=== PATIENT | female | born 2000 ===

== ENCOUNTER 2018-08-15 12:43 | Emergency (ER) | payer MEDICAID, OTHER ==
[2018-08-15] MEDS ORDERED: Sodium Chloride 0.9% 1,000 ML IV STA ×2 (13:23→14:45)
--- NOTE | 2018-08-15 13:29 | ED PDOC ---
HPI: Abdomen Time Seen by Provider: 08/15/18 13:09 Chief Complaint (Nursing): Abdominal Pain Chief Complaint (Provider): Pelvic Pain History Per: Patient History/Exam Limitations: no limitations Onset/Duration Of Symptoms: Days (2) Additional Complaint(s): 18 y/o female presents to the ED complaining of lower pelvic pain that started 2 days ago. Patient states she was at work when the pain started which she took Advil with no relief. She reports she had this pain before but it comes and goes and now the pain is constant. Patient admits the pain came back when she got her menstrual cycle which she is on. Patient denies nausea, vomiting, diarrhea, chest pain, shortness of breath, cough, dizziness, dysuria, or any headache. PMD: none provided Past Medical History Reviewed: Historical Data, Nursing Documentation, Vital Signs Vital Signs: Last Vital Signs Temp 99.3 F 08/15/18 12:53 Pulse 118 H 08/15/18 12:53 Resp 20 08/15/18 12:53 BP 114/78 08/15/18 12:53 Pulse Ox 97 08/15/18 12:53 Primary Care Provider: Lupis Mo - Medical History PMH: Bipolar Disorder, Depression, HIV (2013) - Surgical History Surgical History: No Surg Hx - Family History Family History: States: Unknown Family Hx - Immunization History Hx Tetanus Toxoid Vaccination: No Hx Influenza Vaccination: Yes Hx Pneumococcal Vaccination: No - Home Medications Home Medications: Ambulatory Orders Medication Instructions Recorded Bictegrav/Emtricit/Tenofov Ala 1 each PO DAILY 05/09/18 [Biktarvy 50-200-25 mg Tablet] Ibuprofen [Motrin] 600 mg PO Q6 #30 tab 05/09/18 Nitrofurantoin Macrocrystals 1 cap PO BID #14 cap 05/09/18 [Macrobid] Phenazopyridine HCl [Pyridium] 200 mg PO BID #6 tablet 05/09/18 - Allergies Allergies/Adverse Reactions: Allergies Allergy/AdvReac Type Severity Reaction Status Date / Time No Known Allergies Allergy Verified 08/15/18 12:53 Review of Systems ROS Statement: Except As Marked, All Systems Reviewed And Found Negative Cardiovascular: Negative for: Chest Pain Respiratory: Negative for: Cough, Shortness of Breath Gastrointestinal: Negative for: Nausea, Vomiting, Diarrhea Genitourinary Female: Positive for: Pelvic Pain. Negative for: Dysuria Neurological: Negative for: Headache, Dizziness Physical Exam - Reviewed Nursing Documentation Reviewed: Yes Vital Signs Reviewed: Yes - Physical Exam Appears: Positive for: Non-toxic, No Acute Distress Head Exam: Positive for: ATRAUMATIC, NORMAL INSPECTION, NORMOCEPHALIC Skin: Positive for: Normal Color, Warm, Dry Eye Exam: Positive for: EOMI, Normal appearance, PERRL ENT: Positive for: Normal ENT Inspection Neck: Positive for: Normal, Painless ROM, Supple Cardiovascular/Chest: Positive for: Regular Rate, Rhythm. Negative for: Murmur Respiratory: Positive for: Normal Breath Sounds. Negative for: Wheezing Gastrointestinal/Abdominal: Positive for: Soft, Tenderness (mild lower pelvic across; no periumbilical, leftm or right lower abd tenderness). Negative for: Distended, Guarding, Rebound Back: Positive for: Normal Inspection. Negative for: L CVA Tenderness, R CVA Tenderness Extremity: Positive for: Normal ROM Neurological/Psych: Positive for: Awake, Alert, Normal Tone, Oriented (x3). Negative for: Motor/Sensory Deficits - Laboratory Results Result Diagrams: 08/15/18 13:47 08/15/18 13:47 Lab Results: 18 bands - ECG O2 Sat by Pulse Oximetry: 97 Pulse Ox Interpretation: Normal - Progress ED Course And Treament: 1340: Stable. AAOx3. Pain free. 1440: Bands elevated significantly. Will do septic workup. Will give for presumed abd/pelvic pain infectious etiology. Pending US and ct. 1450: Dr. Altman to take over care. Fu on labs and imaging. Medical Decision Making Medical Decision Making: Time: 1323 Initial Impression: Pelvic pain Initial Plan: -BMP -ED urine -Urine dipstick -CBC -Sodium chloride -Toradol 15mg -US Scribe Attestation: Documented by Asha Govea, acting as a scribe for Neeraj Corral Provider Scribe Attestation: All medical record entries made by the Scribe were at my direction and personally dictated by me. I have reviewed the chart and agree that the record accurately reflects my personal performance of the history, physical exam, medical decision making, and the department course for this patient. I have also personally directed, reviewed, and agree with the discharge instructions and disposition. Disposition - Clinical Impression Clinical Impression: Pelvic pain, Bandemia - Patient ED Disposition Is Patient to be Admitted: Transfer of Care Counseled Patient/Family Regarding: Studies Performed, Diagnosis - Disposition Disposition: Transfer of Care Disposition Time: 14:46 Condition: FAIR Patient Signed Over To: Aubrie Altman
[2018-08-15 13:51] LABS: BASO % 0.2 % (0.0-2.0); EOS % 0.4 % (0.0-4.0); HEMOGLOBIN 13.5 g/dL (12.0-16.0); LYMPH # 0.6 K/uL (1.0-4.3); MEAN CELL VOLUME 85.8 fl (81.0-99.0); MEAN CORPUSCULAR HEMOGLOBIN 28.8 pg (27.0-31.0); MEAN CORPUSCULAR HGB CONC 33.5 g/dL (33.0-37.0); MEAN PLATELET VOLUME 10.1 fl (7.2-11.7); MONO % 0.4 % (0.0-10.0); NEUT # 6.6 K/uL (1.8-7.0); PLATELET COUNT 171 K/uL (130-400); RBC 4.68 Mil/uL (3.80-5.20); WHITE BLOOD COUNT 7.2 K/uL (4.8-10.8)
[2018-08-15 14:07] LABS: BLOOD UREA NITROGEN 10 mg/dl (7-17); CALCIUM 9.2 mg/dL (8.4-10.2); GFR NON-AFRICAN AMERICAN > 60
[2018-08-15 14:33] LABS: LYMPHOCYTE 6 % (20-50); MONOCYTE 4 % (0-10); TOTAL CELLS COUNTED 100
[2018-08-15 14:36] LABS: BANDS 18 % (0-2); EOSINOPHIL 1 % (0-7); LARGE PLATELETS PRESENT; MICROCYTOSIS SLIGHT; NEUTROPHIL 71 % (42-75); PLATELET ESTIMATE NORMAL (NORMAL)
[2018-08-15] MEDS ORDERED: cefTRIAXone (Rocephin) 1 gm Inj IV ONE (14:39)
[2018-08-15] MEDS ORDERED: metroNIDAZOLE 500mg/100ml NS 100 ML IV STA (14:39)
[2018-08-15] MEDS ORDERED: metroNIDAZOLE 500mg/100ml NS 100 ML IVPB ONE (14:46)
[2018-08-15] MEDS ORDERED: cefTRIAXone (Rocephin) 1 gm Inj ONE (14:47)
--- NOTE | 2018-08-15 15:19 | US ---
Date of service: 08/15/2018 HISTORY: vaginal bleeding COMPARISON: None available. TECHNIQUE: Transvaginal and transabdominal pelvic ultrasound was performed with longitudinal and transverse images submitted for interpretation. FINDINGS: UTERUS: Measures 9.1 x 6.0 x 4.2 cm. Normal in size and appearance. No fibroid or other mass lesion seen. ENDOMETRIUM: Measures 5.0 mm in diameter. Unremarkable. CERVIX: No cervical abnormality identified. RIGHT OVARY: Measures 4.8 x 3.2 x 4.9 cm. No solid mass. Normal flow. Right ovary is enlarged by a cyst measuring 4.6 x 2.7 x 4.1 cm without septation or nodule related. LEFT OVARY: Measures 2.8 x 1.9 x 1.7 cm. No solid mass. Normal flow. FREE FLUID: No significant free fluid noted. OTHER FINDINGS: None. IMPRESSION: Mildly larger in the right ovary due to a 4.6 cm simple cyst. Clinical correlation and consideration of 6-12 week sonographic follow-up advised. Unremarkable uterus, endometrium and cervix as well as left ovary.
[2018-08-15 15:41] LABS: VENOUS BLOOD GAS BASE EXCESS -2.8 mmol/L (0.0-2.0); VENOUS BLOOD GAS PCO2 32 mmHg (40-60); VENOUS BLOOD GAS PO2 70 mm/Hg (30-55); VENOUS BLOOD PH 7.42 (7.32-7.43)
[2018-08-15 15:59] LABS: SQUAMOUS EPITHIAL 40 /hpf (0-5); URINE BACTERIA RARE (<OCC); URINE BILIRUBIN NEGATIVE (NEGATIVE); URINE BLOOD LARGE (NEGATIVE); URINE CLARITY CLOUDY (Clear); URINE COLOR YELLOW (YELLOW); URINE GLUCOSE (UA) NEG (NEGATIVE); URINE LEUKOCYTE ESTERASE SMALL Leu/uL (Negative); URINE PROTEIN 30 mg/dL (NEGATIVE); URINE UROBILINOGEN 0.2-1.0 mg/dL (0.2-1.0)
--- NOTE | 2018-08-15 16:05 | ED PDOC ---
- Laboratory Results Result Diagrams: 08/15/18 13:47 08/15/18 13:47 Lab Results: pO2 70 mm/Hg (30-55) H 08/15/18 15:35 VBG pH 7.42 (7.32-7.43) 08/15/18 15:35 VBG pCO2 32 mmHg (40-60) L 08/15/18 15:35 VBG HCO3 22.7 mmol/L 08/15/18 15:35 VBG Total CO2 21.8 mmol/L (22-28) L 08/15/18 15:35 VBG O2 Sat (Calc) 98.3 % (40-65) H 08/15/18 15:35 VBG Base Excess -2.8 mmol/L (0.0-2.0) L 08/15/18 15:35 VBG Potassium 3.5 mmol/L (3.6-5.2) L 08/15/18 15:35 Sodium 137.0 mmol/L (132-148) 08/15/18 15:35 Chloride 109.0 mmol/L (98-107) H 08/15/18 15:35 Glucose 112 mg/dL (65-105) H 08/15/18 15:35 Lactate 1.8 mmol/L (0.7-2.1) 08/15/18 15:35 FiO2 21.0 % 08/15/18 15:35 - ECG O2 Sat by Pulse Oximetry: 97 Medical Decision Making Medical Decision Making: Accession No. 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 TECHNIQUE: Transvaginal and transabdominal pelvic ultrasound was performed with longitudinal and transverse images submitted for interpretation. FINDINGS: UTERUS: Measures 9.1 x 6.0 x 4.2 cm. Normal in size and appearance. No fibroid or other mass lesion seen. ENDOMETRIUM: Measures 5.0 mm in diameter. Unremarkable. CERVIX: No cervical abnormality identified. RIGHT OVARY: Measures 4.8 x 3.2 x 4.9 cm. No solid mass. Normal flow. Right ovary is enlarged by a cyst measuring 4.6 x 2.7 x 4.1 cm without septation or nodule related. LEFT OVARY: Measures 2.8 x 1.9 x 1.7 cm. No solid mass. Normal flow. FREE FLUID: No significant free fluid noted. OTHER FINDINGS: None. IMPRESSION: Mildly larger in the right ovary due to a 4.6 cm simple cyst. Clinical correlation and consideration of 6-12 week sonographic follow-up advised. Unremarkable uterus, endometrium and cervix as well as left ovary. EXAM: CT Abdomen and Pelvis with IV contrast CLINICAL HISTORY: BLQ PAIN,FEVER TECHNIQUE: Axial computed tomography images of the abdomen and pelvis with intravenous contrast. 595.42 mGy-cm CONTRAST: With; [id number] 95ML COMPARISON: None provided. FINDINGS: LUNG BASES: The lung bases appear clear. No pleural effusions are seen. LIVER: Unremarkable. GALLBLADDER AND BILE DUCTS: The gallbladder appears within normal limits. No radioopaque gallstones are seen. No biliary ductal dilatation is evident. PANCREAS: Unremarkable. SPLEEN: Unremarkable. ADRENAL GLANDS: Unremarkable. KIDNEYS, URETERS, AND BLADDER: The kidneys appear within normal limits. There is no hydronephrosis or hydroureter. No urinary calculi are seen. STOMACH AND BOWEL: Unremarkable appearance of the stomach and bowel. No evidence of bowel obstruction. No evidence suggesting enteritis or colitis. APPENDIX: No evidence of acute appendicitis on CT examination. PERITONEUM: No free fluid. No free air. LYMPH NODES: No lymphadenopathy is evident. REPRODUCTIVE: Simple 3.7 cm right ovarian cyst is seen. The uterus and ovaries are otherwise unremarkable. VASCULATURE: No evidence of abdominal aortic aneurysm. BONES: No aggressive appearing osseous lesion. No acute osseous pathology evident. IMPRESSION: Simple 3.7 cm right ovarian cyst Otherwise unremarkable study. Electronically signed on August 15, 2018 7:46:56 PM EDT by: Mikey Moore M.D., M.B.A., Certified By [employer] Trained MRI and CT Specialist 19:50 Pt feels better. 20:[address] Forrest for admission for UTI and sepsis. 20:34 Patient is unable to find anyone to watch her children and is requesting to leave against medial advice. Disposition - Clinical Impression Clinical Impression: Ovarian cyst, Sepsis, UTI (urinary tract infection) - POA Present On Arrival: None - Disposition Disposition: AGAINST MEDICAL ADVICE Disposition Time: 20:35 Condition: UNKNOWN Additional Instructions: FOLLOW-UP WITH PMD RODRIGUEZ FOR REEVALUATION. RETURN TO ED IF SAME OR WORSE. Prescriptions: Acetaminophen [Tylenol 325mg tab] 2 tab PO Q4H PRN #20 tab PRN Reason: Fever >100.4 F Cephalexin [cephalexin] 500 mg PO QID #28 cap Ibuprofen [Motrin] 600 mg PO Q6H PRN #20 tab PRN Reason: Pain, Moderate (4-7) Instructions: Urinary Tract Infections in Adults, Ovarian Cysts, Sepsis in Adults Forms: [employer] (Slovak) Addendum Addendum: 08/15/18 15:00 Pt signed out by Dr. Alvarado pending ultrasound and CT. Against Medical Advice - AMA Patient Left Against Medical Advice: The patient declines admission to the hospital and wishes to leave the Emergency Department. This action is against my medical advice. This decision was made with informed refusal. The patient was told that admission to the hospital is necessary. Explanation of the reasons why were discussed. The risks of leaving were explained to the patient and include, but are not limited to, worsening of known or currently unknown conditions, permanent disability and from undiagnosed or untreated conditions. The patient has the capacity to make this informed decision and understands my explanation of the current medical problem and risks of leaving. The patient voluntarily accepts these risks and signed an AMA form documenting our conversation. The patient was given the opportunity to ask questions and reconsider. The patient was encouraged to return to the Emergency Department at any time for further care.
--- NOTE | 2018-08-15 16:38 | RAD ---
Date of service: 08/15/2018 HISTORY: abd pain COMPARISON: No prior. FINDINGS: LUNGS: No active pulmonary disease. PLEURA: No significant pleural effusion identified, no pneumothorax apparent. CARDIOVASCULAR: No atherosclerotic calcification present Normal. OSSEOUS STRUCTURES: No significant abnormalities. VISUALIZED UPPER ABDOMEN: Normal. OTHER FINDINGS: None. IMPRESSION: No active disease.
[2018-08-15] MEDS ORDERED: Sodium Chloride 0.9% 50 ML IV ONE (18:44)
[2018-08-15] MEDS ORDERED: Iohexol 300 100 ML IJ ONE (18:44)
[2018-08-15 20:26] VITALS: BP 85/45; PULSE 113; RESP 16; TEMP 100.6
[2018-08-16 00:11] VITALS: O2SAT 97
--- NOTE | 2018-08-16 17:00 | CT ---
Date of service: 08/15/2018 PROCEDURE: CT Abdomen and Pelvis with contrast HISTORY: BLQ pain, fever COMPARISON: None. TECHNIQUE: Following the intravenous administration of iodinated contrast material, a CT examination of the abdomen and pelvis was performed from the domes of the diaphragms to the symphysis pubis with reformatted datasets provided in axial, sagittal and coronal planes. Oral contrast was not administered as per referring physician request. Contrast dose: Omnipaque 320, 95 cc Radiation dose: Total exam DLP = 595.42 mGy-cm. This CT exam was performed using one or more of the following dose reduction techniques: Automated exposure control, adjustment of the mA and/or kV according to patient size, and/or use of iterative reconstruction technique. FINDINGS: LOWER THORAX: Unremarkable. LIVER: Unremarkable. No gross lesion or ductal dilatation. GALLBLADDER AND BILE DUCTS: The gallbladder is mildly distended and otherwise unremarkable appearing. PANCREAS: Unremarkable. No gross lesion or ductal dilatation. SPLEEN: Unremarkable. ADRENALS: Unremarkable. No mass. KIDNEYS AND URETERS: Unremarkable. No hydronephrosis. No solid mass. VASCULATURE: Unremarkable. No aortic aneurysm. No aortic atherosclerotic calcification or mural plaque present. BOWEL: Unremarkable. No obstruction. No gross mural thickening. APPENDIX: Not identified. No CT evidence to suggest appendicitis at this time. PERITONEUM: Unremarkable. No free fluid. No free air. LYMPH NODES: Unremarkable. No enlarged lymph nodes. BLADDER: Unremarkable. REPRODUCTIVE: There is a 3.4 x 3.8 x 4.9 cm (transverse by anteroposterior by superoinferior dimensions) cystic lesion at the right adnexal compartment likely representing a right ovarian cyst with remainder of the reproductive organs unremarkable appearing. BONES: No acute fracture. OTHER FINDINGS: None. IMPRESSION: 3.4 x 3.8 x 4.9 cm right adnexal cyst for which trans abdominal and transvaginal ultrasonography are advised for further characterization. The remainder the examination appears unremarkable grossly. Concordant preliminary report from [facility], 08/15/2018, 7:46 p.m..
== END 2018-08-15 20:59 | disposition left against medical advice (07) ==
LOC: H.ER 12:43
DX: R10.2 Pelvic and perineal pain (principal); D72.825 Bandemia; Z86.59 Personal history of other mental and behavioral disorders; N39.0 Urinary tract infection, site not specified; N93.9 Abnormal uterine and vaginal bleeding, unspecified
CPT/HCPCS: 71045; 74177; 76830; 80048; 81003; 81025; 82803; 85025; 87040; 87086; 96361; 96365; 96375; 99285; J0696; J1885; J7030; Q9967

== ENCOUNTER 2018-08-19 16:02 | Emergency (ER) | payer MEDICAID ==
[2018-08-19 16:30] VITALS: RESP 16; TEMP 98.6; O2SAT 97
--- NOTE | 2018-08-19 17:02 | ED PDOC ---
HPI: General Adult Time Seen by Provider: 08/19/18 16:47 Chief Complaint (Nursing): Abnormal Labs Chief Complaint (Provider): positive blood cultures History Per: Patient (18 y/o female h/o HIV recently seen in ED for lower abdominal pain and was diagnosed with UTI/ovarian cyst. Patient was noted to have positive blood cultures and called back to ED. notes additional left sided jaw pain and inability to open jaw.) Past Medical History Reviewed: Historical Data, Nursing Documentation, Vital Signs Vital Signs: Last Vital Signs Temp 98.6 F 08/19/18 16:29 Pulse 72 08/19/18 16:29 Resp 16 08/19/18 16:29 BP 111/62 08/19/18 16:29 Pulse Ox 97 08/19/18 16:29 Primary Care Provider: Procedure,Nonphys - Medical History PMH: Bipolar Disorder, Depression, HIV (2013) Denies: Chronic Kidney Disease - Family History Family History: States: Unknown Family Hx - Immunization History Hx Tetanus Toxoid Vaccination: No Hx Influenza Vaccination: Yes Hx Pneumococcal Vaccination: No - Home Medications Home Medications: Ambulatory Orders Medication Instructions Recorded Bictegrav/Emtricit/Tenofov Ala 1 each PO DAILY 05/09/18 [Biktarvy 50-200-25 mg Tablet] Ibuprofen [Motrin] 600 mg PO Q6 #30 tab 05/09/18 Nitrofurantoin Macrocrystals 1 cap PO BID #14 cap 05/09/18 [Macrobid] Phenazopyridine HCl [Pyridium] 200 mg PO BID #6 tablet 05/09/18 Acetaminophen [Tylenol 325mg tab] 2 tab PO Q4H PRN #20 tab 08/15/18 Cephalexin [cephalexin] 500 mg PO QID #28 cap 08/15/18 Ibuprofen [Motrin] 600 mg PO Q6H PRN #20 tab 08/15/18 Amoxicillin/Clavulanate [Augmentin 1 tab PO BID #20 tab 08/19/18 875 MG-125 MG] Naproxen 375 mg PO Q8 PRN #21 tablet 08/19/18 - Allergies Allergies/Adverse Reactions: Allergies Allergy/AdvReac Type Severity Reaction Status Date / Time No Known Allergies Allergy Verified 08/19/18 16:26 Review of Systems ROS Statement: Except As Marked, All Systems Reviewed And Found Negative Physical Exam - Reviewed Nursing Documentation Reviewed: Yes Vital Signs Reviewed: Yes - Physical Exam Appears: Positive for: Well, Non-toxic, No Acute Distress Head Exam: Positive for: ATRAUMATIC, NORMAL INSPECTION, NORMOCEPHALIC Skin: Positive for: Normal Color, Warm, DRY Eye Exam: Positive for: EOMI, Normal appearance, PERRL ENT: Positive for: Normal ENT Inspection, Other (left posterior molar tender by mandible.) Neck: Positive for: Painless ROM. Negative for: Normal (left submandibular lymph node noted enlarged.) Cardiovascular/Chest: Positive for: Regular Rate, Rhythm Respiratory: Positive for: CNT, Normal Breath Sounds Gastrointestinal/Abdominal: Positive for: Normal Exam, Soft Back: Positive for: Normal Inspection Extremity: Positive for: Normal ROM Neurological/Psych: Positive for: Awake, Alert, Normal Tone - Laboratory Results Result Diagrams: 08/19/18 16:55 08/19/18 16:55 - ECG O2 Sat by Pulse Oximetry: 97 - Progress ED Course And Treament: TORADOL [address]: NUMEROUS SUBMENTAL,SUBMANDIULAR AND JUGULAR AND POSTERIOR TRIAGLE BORDERLINE ENLARGED LYMPH NODES ARE PRESEENT, NONSPECIFIC LIKELY REACTIVE PROBABLY DUE TO INFECTION DIFFUSE MUCOSAL THICKENING INVOLVING BILATERAL ETHMOID AND MAXILLARY SINUSES BOTH TEMPOROMANDIBULAR JOINTS ARE GROSSLY NORMAL Disposition - Clinical Impression Clinical Impression: Sinusitis, Lymphadenopathy - Patient ED Disposition Is Patient to be Admitted: No - Disposition Disposition: Routine/Home Disposition Time: 20:06 Condition: FAIR Prescriptions: Amoxicillin/Clavulanate [Augmentin 875 MG-125 MG] 1 tab PO BID #20 tab Naproxen 375 mg PO Q8 PRN #21 tablet PRN Reason: Pain, Moderate (4-7) Instructions: Sinusitis, Adult (DC) Forms: [facility] ED School/Work Excuse
[2018-08-19] MEDS ORDERED: Sodium Chloride 0.9% 50 ML IV ONE (17:09)
[2018-08-19] MEDS ORDERED: Iohexol 300 100 ML IJ ONE (17:09)
[2018-08-19 17:35] LABS: VENOUS BLOOD GAS BASE EXCESS 2.4 mmol/L (0.0-2.0); VENOUS BLOOD GAS PCO2 51 mmHg (40-60); VENOUS BLOOD GAS PO2 22 mm/Hg (30-55); VENOUS BLOOD PH 7.36 (7.32-7.43)
[2018-08-19 17:35] LABS: BASO % 0.5 % (0.0-2.0); EOS # 0.1 K/uL (0.0-0.7); EOS % 1.9 % (0.0-4.0); HEMOGLOBIN 12.4 g/dL (12.0-16.0); LYMPH # 1.8 K/uL (1.0-4.3); LYMPH % 36.1 % (20.0-40.0); MEAN CORPUSCULAR HEMOGLOBIN 28.6 pg (27.0-31.0); MEAN CORPUSCULAR HGB CONC 33.6 g/dL (33.0-37.0); MEAN PLATELET VOLUME 9.9 fl (7.2-11.7); MONO # 0.3 K/uL (0.0-0.8); MONO % 6.3 % (0.0-10.0); NEUT # 2.7 K/uL (1.8-7.0); NEUT % 55.2 % (50.0-75.0); NRBC % 0.1 % (0.0-0.0); RBC 4.33 Mil/uL (3.80-5.20); RED CELL DISTRIBUTION WIDTH 12.7 % (11.5-14.5)
[2018-08-19 17:44] LABS: ALBUMIN 4.3 g/dL (3.5-5.0); ALT/SGPT 18 U/L (9-52); AST/SGOT 17 U/L (14-36); BLOOD UREA NITROGEN 10 mg/dl (7-17); CALCIUM 9.2 mg/dL (8.4-10.2); GFR NON-AFRICAN AMERICAN > 60
[2018-08-19 20:24] VITALS: BP 112/78; PULSE 78
--- NOTE | 2018-08-20 12:36 | CT ---
Date of service: 08/19/2018 PROCEDURE: CT NECK WITH CONTRAST HISTORY: unable to open jaw/ neck pain COMPARISON: Normal TECHNIQUE: CT of the neck with intravenous contrast. Coronal and sagittal reformats generated. Intravenous contrast dose: 90 mL Omnipaque 300 Radiation dose: Total exam DLP = 280.85 mGy-cm. This CT exam was performed using one or more of the following dose reduction techniques: Automated exposure control, adjustment of the mA and/or kV according to patient size, and/or use of iterative reconstruction technique. FINDINGS: NASOPHARYNX: Within normal limits. SUPRAHYOID NECK: There is a 1.2 x 0.9 cm well-circumscribed round low-attenuation lesion with mild peripheral enhancement in the left medial pterygoid muscle which is enlarged at its attachment to the mandibular ramus. There is also mild asymmetric enlargement of the left sublingual gland. The left masseter parotid and submandibular glands are also enlarged. There is effacement of fat plane in the left superior parapharyngeal space. No gross abnormality in the oropharynx, right parapharyngeal space and retropharyngeal space. INFRAHYOID NECK: No gross abnormality in the larynx, hypopharynx, and supraglottic space. Vocal cords intact. MASS: None. GLANDS: Parotid and submandibular glands unremarkable. Normal size thyroid gland, without nodule. LYMPH NODES: There are enlarged left submandibular and upper anterior and posterior cervical chain lymph nodes. The largest upper anterior cervical chain lymph node measures 1.5 x 1.5 cm and demonstrates central low attenuation likely related to necrosis. CERVICAL SPINE: No fracture or focal lesion. Within normal limits for the patient's age. VASCULAR STRUCTURES: There is normal intravascular enhancement. OTHER FINDINGS: There is moderate polypoid mucosal thickening in the maxillary sinuses and left ethmoid air cells. IMPRESSION: Findings are most compatible with a 1.2 x 0.9 cm fluid collections/developing abscess in the left medial pterygoid muscle at its attachment to the mandibular ramus. Reactive enlargement of the left masseter, sublingual, submandibular and parotid glands and reactive submandibular and upper cervical chain lymphadenopathy. Important findings were discussed with Dr. Pierce in the ER on 08/20/2018 at 11:30 p.m. A preliminary report was provided by [facility]. There is a discrepancy with the preliminary read. Findings of fluid collection/abscess in the left pterygoid muscle were not described on the preliminary read.
== END 2018-08-19 20:07 | disposition home or self-care (01) ==
LOC: H.ER 16:02
DX: J32.9 Chronic sinusitis, unspecified (principal); L02.11 Cutaneous abscess of neck; N83.209 Unspecified ovarian cyst, unspecified side; Z86.59 Personal history of other mental and behavioral disorders; M27.2 Inflammatory conditions of jaws; B20 Human immunodeficiency virus [HIV] disease
CPT/HCPCS: 70491; 80053; 81025; 82803; 85025; 87040; 99282; Q9967

== ENCOUNTER 2018-08-20 15:13 | Emergency (ER) | payer MEDICAID ==
--- NOTE | 2018-08-20 16:39 | ED PDOC ---
HPI: Dental Pain/Injury Time Seen by Provider: 08/20/18 15:47 Chief Complaint (Nursing): Dental Pain Chief Complaint (Provider): dental/facial pain History Per: Patient History/Exam Limitations: no limitations Onset/Duration Of Symptoms: Days Current Symptoms Are (Timing): Still Present Severity: Moderate Pain Scale Rating Of: 6 Quality: Aching Additional History Per: Patient Additional Complaint(s): 18 year female with history of HIV presents to the ED being called back to ED due to discrepancy on CT read of maxillofacial scan done on 08/19/2018 which demonstrated a left medial pterygoid muscle abscess. Patient states she saw her dentist on July 21 for left lower wisdom tooth pain and jaw pain and routine check up. Patient states dentist did not think the pain was coming from the tooth. Patient then was seen in ED on SaturdayAugust 15 with c/o dental pain and abdominal pain for which the abdominal pain was addressed, at this time patient has blood cultures done do to bandemia and was called back yesterday to return due to positive blood cultures. As per records patient refused admission yesterday and diagnosed with [facility] Today an offical CT scan report was recieved whiuch showed a left medial pterygoid muscle abscess. Patient states she continues to have pain, increased facial swelling. Patient denies fever, nausea, vomiting, diarrhea. Past Medical History Reviewed: Historical Data, Nursing Documentation, Vital Signs Vital Signs: Last Vital Signs Temp 98.8 F 08/20/18 15:36 Pulse 64 08/20/18 15:36 Resp 16 08/20/18 15:36 BP 100/65 08/20/18 15:36 Pulse Ox 100 08/20/18 15:36 Primary Care Provider: FAMILY PROVIDER,NO - Medical History PMH: Bipolar Disorder, Depression, HIV (2013) Denies: Chronic Kidney Disease - Surgical History Surgical History: No Surg Hx - Family History Family History: States: Unknown Family Hx - Living Arrangements Living Arrangements: With Family - Social History Alcohol: None Drugs: Denies - Immunization History Hx Tetanus Toxoid Vaccination: No Hx Influenza Vaccination: Yes Hx Pneumococcal Vaccination: No - Home Medications Home Medications: Ambulatory Orders Medication Instructions Recorded Bictegrav/Emtricit/Tenofov Ala 1 tab PO DAILY 05/09/18 [Biktarvy 50-200-25 mg Tablet] Ibuprofen [Motrin] 600 mg PO Q6H PRN #20 tab 08/15/18 Amoxicillin/Clavulanate [Augmentin 1 tab PO BID #20 tab 08/19/18 875 MG-125 MG] - Allergies Allergies/Adverse Reactions: Allergies Allergy/AdvReac Type Severity Reaction Status Date / Time No Known Allergies Allergy Verified 08/19/18 16:26 Review of Systems ROS Statement: Except As Marked, All Systems Reviewed And Found Negative Constitutional: Negative for: Fever, Chills, Sweats, Weakness, Malaise Cardiovascular: Negative for: Chest Pain, Palpitations, Light Headedness Respiratory: Negative for: Cough, Shortness of Breath, SOB with Exertion Gastrointestinal: Negative for: Nausea, Vomiting, Abdominal Pain, Diarrhea Musculoskeletal: Positive for: Neck Pain. Negative for: Shoulder Pain, Arm Pain, Back Pain, Hand Pain, Leg Pain Skin: Negative for: Rash Neurological: Negative for: Numbness, Confusion Physical Exam - Reviewed Nursing Documentation Reviewed: Yes Vital Signs Reviewed: Yes - Physical Exam Appears: Positive for: Well, Non-toxic, No Acute Distress Head Exam: Positive for: ATRAUMATIC, NORMAL INSPECTION, NORMOCEPHALIC Skin: Positive for: Normal Color, Warm, DRY Eye Exam: Positive for: EOMI, Normal appearance, PERRL ENT: Positive for: Normal ENT Inspection, TM Is/Are (intact). Negative for: Sinus Pain/Drainage, Nasal Congestion, Pharyngeal Erythema, Tonsillar Exudate, Tonsillar Swelling Neck: Positive for: Normal, Supple, Pain On Movement Of Neck Cardiovascular/Chest: Positive for: Regular Rate, Rhythm, Chest Non Tender Respiratory: Positive for: CNT, Normal Breath Sounds Pulses-Radial (L): 2+ Pulses-Radial (R): 2+ Gastrointestinal/Abdominal: Positive for: Normal Exam, Bowel Sounds, Soft. Negative for: Tenderness Back: Positive for: Normal Inspection. Negative for: L CVA Tenderness, R CVA Tenderness Extremity: Positive for: Normal ROM Lymphatic: Positive for: Other (cervial neck lymphadenpathy). Negative for: Axilla Node Tenderness, Inguinal Node Tenderness Neurological/Psych: Positive for: Awake, Alert, Normal Tone, Oriented - Laboratory Results Result Diagrams: 08/20/18 17:21 08/20/18 17:21 Urine POC: Negative - ECG O2 Sat by Pulse Oximetry: 100 Medical Decision Making Medical Decision Making: --cbc -cmp --blood cultures --unasyn 3gm iv Patient had negative upreg from 08/19/2018. 18:00 Labs reviewed by me, unremarkable. Blood Cx from 08/15 revealed Gram Pos Cocci,staph aureus & coag neg. -Spoke to Dr. Giles [facility] resident. recommended to call transfer center to speak to [facility] attending for possible transfer 1809 Dr. Samuels ([facility] attending at [facility]) Patient to be transferred to [facility] for abscess drainage. Recommended to call medicine or hospitalist to have patient admitted due to hx of HIV. Aleta from Transfer center will call back with Hospitalists. Attempted to call Patients PMD at [facility] Dr. Wright, unable to contact physician. [address] Owens, hospitalist at [facility], MD accepts patient. patient will be admitted to Pediatrics. transports with [facility] to be set up. 1854 Risks and benefits for transfer discussed with patient. Patient states understanding and agrees with plan. Patient signed consent for transfer to [facility] in [place]. Dr. Miller aware of plan and agrees. Accession No. : [id number] Patient Name / ID : TYREL JOHNSON / [id number] Exam Date : 08/19/2018 18:20:57 ( Approved ) Study Comment : Sex / Age : F / 18Y Creator : Cheryl Wooten MD Dictator : Cheryl Wooten MD Acute Dialysis Registered Nurse : Elementary Reading Tutor : Cheryl Wooten MD Approver2 : Report Date : 08/20/2018 10:10:02 My Comment : Date of service: 08/19/2018 PROCEDURE: CT NECK WITH CONTRAST HISTORY: unable to open jaw/ neck pain COMPARISON: Normal TECHNIQUE: CT of the neck with intravenous contrast. Coronal and sagittal reformats g enerated. Intravenous contrast dose: 90 mL Omnipaque 300 Radiation dose: Total exam DLP = 280.85 mGy-cm. This CT exam was performed using one or more of the following dose reduction techniques: Automated exposure control, adjustment of the mA and/or kV according to patient size, and/or use of iterative reconstruction technique. FINDINGS: NASOPHARYNX: Within normal limits. SUPRAHYOID NECK: There is a 1.2 x 0.9 cm well-circumscribed round low-attenuation lesion with mild peripheral enhancement in the left medial pterygoid muscle which is enlarged at its attachment to the mandibular ramus. There is also mild asymmetric enlargement of the left sublingual gland. The left masseter parotid a nd submandibular glands are also enlarged. There is effacement of fat plane in the left superior parapharyngeal space. No gross abnormality in the oropharynx, right parapharyngeal space and retropha ryngeal space. INFRAHYOID NECK: No gross abnormality in the larynx, hypopharynx, and supraglottic space. Vocal cords intact. MASS: None. GLANDS: Parotid and submandibular glands unremarkable. Normal size thyroid gland, without nodule. LYMPH NODES: There are enlarged left submandibular and upper anterior and posterior cervical chain lymph nodes. The largest upper anterior cervical chain lymph node measures 1.5 x 1.5 cm and demonstrates central low attenuation likely related to necrosis. CERVICAL SPINE: No fracture or focal lesion. Within normal limits for the patient's age. VASCULAR STRUCTURES: There is normal intravascular enhancement. OTHER FINDINGS: There is moderate polypoid mucosal thickening in the maxillary sinuses and left ethmoid air cells. IMPRESSION: Findings are most compatible with a 1.2 x 0.9 cm fluid collections/developing abscess in the left medial pterygoid muscle at its attachment to the mandibular ramus. Reactive enlargement of the left masseter, sublingual, submandibular and parotid glands and reactive submandibular and upper cervical chain lymphadenopathy. Important findings were discussed with Dr. Pierce in the ER on 08/20/2018 at 11:30 p.m. A preliminary report was provided by [employer]. There is a discrepancy with the preliminary read. Findings of fluid collection/abscess in the left pterygoid muscle were not described on the preliminary read. Disposition - Clinical Impression Clinical Impression: Facial abscess - Patient ED Disposition Is Patient to be Admitted: Yes Doctor Will See Patient In The: Hospital Counseled Patient/Family Regarding: Diagnosis - Disposition Disposition: Other Institution Disposition Time: 18:00 Condition: STABLE - POA Present On Arrival: None
[2018-08-20 16:58] LABS: VENOUS BLOOD GAS BASE EXCESS 2.1 mmol/L (0.0-2.0); VENOUS BLOOD GAS PCO2 52 mmHg (40-60); VENOUS BLOOD GAS PO2 29 mm/Hg (30-55); VENOUS BLOOD PH 7.35 (7.32-7.43)
[2018-08-20 17:27] LABS: BASO % 0.4 % (0.0-2.0); EOS # 0.1 K/uL (0.0-0.7); HEMOGLOBIN 11.6 g/dL (12.0-16.0); LYMPH # 2.1 K/uL (1.0-4.3); LYMPH % 42.1 % (20.0-40.0); MEAN CORPUSCULAR HEMOGLOBIN 28.9 pg (27.0-31.0); MEAN CORPUSCULAR HGB CONC 33.9 g/dL (33.0-37.0); MEAN PLATELET VOLUME 9.8 fl (7.2-11.7); MONO # 0.4 K/uL (0.0-0.8); MONO % 7.2 % (0.0-10.0); NEUT # 2.4 K/uL (1.8-7.0); NEUT % 48.3 % (50.0-75.0); NRBC % 0.1 % (0.0-0.0); RBC 4.04 Mil/uL (3.80-5.20); RED CELL DISTRIBUTION WIDTH 12.7 % (11.5-14.5)
[2018-08-20 17:41] LABS: ALBUMIN 4.1 g/dL (3.5-5.0); ALT/SGPT 17 U/L (9-52); AST/SGOT 18 U/L (14-36); BLOOD UREA NITROGEN 13 mg/dl (7-17); CALCIUM 9.2 mg/dL (8.4-10.2); GFR NON-AFRICAN AMERICAN > 60
[2018-08-20 19:49] VITALS: RESP 18; TEMP 98.2
[2018-08-20 21:43] VITALS: BP 107/67; PULSE 75; O2SAT 98
== END 2018-08-20 21:43 | disposition short-term general hospital (02) ==
LOC: H.ER 15:13
DX: L02.01 Cutaneous abscess of face (principal); Z21 Asymptomatic human immunodeficiency virus [HIV] infection status; F31.9 Bipolar disorder, unspecified
CPT/HCPCS: 80053; 82803; 85025; 87040; 96374; 99283; J0295; J1885